=== PATIENT | male | born 1970 | race Caucasian/White ===

== ENCOUNTER 2020-04-11 04:08 | Inpatient (IN) | payer OTHER ==
[~2020-04-11] VITALS: Ht 185.4 cm; Wt 98.4 kg
--- NOTE | ~2020-04-11 | OP ---
[address] [address] OPERATIVE REPORT Name: FRANCESCO KIMBLE Room: [address] IN M.R.#: [id number] Admission: 04/11/20 Attend Phys: Pablito Quick MD Discharge: Date of : 74 Report #: [id number] THIS REPORT FOR: cc: Roly Vidales MD, Jason MD ~ Patric Capellan DO DICTATED BY: Willie Mcdaniel DO DATE OF SERVICE: 04/12/2020 PREOPERATIVE DIAGNOSIS: Acute cholecystitis. POSTOPERATIVE DIAGNOSIS: Acute cholecystitis. SURGEON: Patric Capellan DO. COMPUTER SYSTEMS SECURITY ADMINISTRATOR: Willie Mcdaniel DO, PGY5. OPERATION PERFORMED: Laparoscopic cholecystectomy with fluorescent imaging. ANESTHESIA: General and transversus abdominis plane block. ESTIMATED BLOOD LOSS: 20 mL. SPECIMEN: Gallbladder. COMPLICATIONS: None. INDICATIONS: The patient is a 49-year-old male who presented with right-sided upper quadrant abdominal pain. He was found on ultrasound to have acute cholecystitis. He was informed of the risks and benefits of laparoscopic cholecystectomy with risks including but not limited to bleeding, infection, bile duct injury, bowel injury, hernia formation, need for open procedure, need for reoperation and chronic diarrhea. He voiced understanding of these risks and decided to proceed with surgery. DESCRIPTION OF PROCEDURE: After informed consent was obtained, the patient was brought to the operating room and placed in supine position. SCDs were on and running. Preoperative antibiotics were given. General anesthesia was administered with an ET tube. Bilateral transversus abdominis plane blocks were provided by Anesthesia. The patient was prepped and draped in the usual sterile fashion. A surgical pause was held to confirm proper patient and procedure. A supraumbilical vertical 2 cm incision was made with an 11 blade. Dissection was carried down to the fascia. Fascia was incised using cautery. Peritoneum was bluntly entered using a Lamar, 0 Vic[address] was used to place [place] [address] OPERATIVE REPORT Name: FRANCESCO KIMBLE Room: [address] IN [facility].#: [id number] Admission: 04/11/20 Attend Phys: Pablito Quick MD Discharge: Date of : 74 Report #: [id number] peritoneum was insufflated with a Leander trocar. The abdomen was insufflated. The Leander trocar was secured. The patient was positioned head up and right side up. The camera was introduced. The gallbladder was immediately apparent. It was acutely inflamed and had a thick wall that was quite edematous. Three additional 5 mm port placed under direct visualization, 1 in the epigastrium and 2 under the right costal margin and right upper quadrant. The gallbladder was elevated. There were omental adhesions over the entire inferior and anterior surface of the gallbladder, which were taken down using cautery. The fundus of the gallbladder was elevated over the liver. Duc's pouch was grasped. Combination of blunt dissection and cautery were used to develop the hepatocystic triangle. Fluorescence imaging was used to guide dissection and assisted with identification of the cystic duct. A critical view of safety was obtained with 2 and only 2 structures entering the gallbladder. The fibrofatty tissue in the hepatocystic triangle was quite hard with evidence of acute on chronic inflammation. The cystic artery was singly clipped with Weck Hem-o-jay clips and divided using clyde. This provided further room for dissection of the cystic duct to clear the duct of the fibrous tissue to allow for adequate placement of clips. Once the duct was dissected down to an adequate size to accommodate clips, 2 Weck Hem-o-jay clips were fired proximal, one distal, cystic duct was divided using laparoscopic clyde. There was some sludge-like material that expressed from the duct during division of the duct. This was suctioned out with the suction charge gang weigher. The liver was then dissected free from the liver bed using cautery. It was placed within an EndoCatch bag and placed aside. The liver bed was inspected. Cautery was used for hemostasis. Right upper quadrant was thoroughly irrigated and suctioned. It was hemostatic. The clips were hemostatic. There was no bile leak. The patient was positioned supine. The right upper quadrant was again thoroughly irrigated and suctioned. Abdomen was desufflated. All ports were removed under direct visualization. The gallbladder was removed through the umbilical incision. It did require extension of the fascial incision using heavy curved Mayos. The fascia was closed with several [id number] using 0 Vicryl. Wound was closed in layered fashion using 3-0 Vicryl, 4-0 Monocryl. Remainder of skin was closed using 4-0 Monocryl. Wounds were cleansed and dressed with Dermabond. The patient was emerged from anesthesia and transferred to PACU in stable condition. All counts were correct. By: [id number] Karime Capellan DO /marilyn
[2020-04-11] MEDS ORDERED: TOPROL XL100 MG PO (04:28)
[2020-04-11] MEDS ORDERED: XANAX 0.5 MG0.5 M1 PO (04:28)
[2020-04-11 04:40] LABS: ABSOLUTE MONOCYTES 0.4 thou/uL (0.0-1.2); BASOPHILS 0.4 %; EOSINOPHILS 0.4 %; HEMATOCRIT 47.4 % (42.0-52.0); HEMOGLOBIN 16.5 gm/dL (14.0-18.0); LYMPHOCYTES 12.2 %; MCH 32.3 pg (26.0-34.0); MCHC 34.7 g/dL (28.0-37.0); MPV 8.6 fl. (7.2-11.1); NUCLEATED RBCS 0 /100WBC; PLATELET COUNT* 190 thou/uL (150-400); RDW-CV 12.3 % (10.5-14.5); WBC 8.5 thou/uL (4.0-11.0)
[2020-04-11 04:51] LABS: ALBUMIN 4.1 g/dL (3.4-5.0); CALCIUM 9.2 mg/dL (8.5-10.1); POTASSIUM 3.5 mmol/L (3.5-5.1); TOTAL BILIRUBIN 0.5 mg/dL (<0.1-1.0)
[2020-04-11 10:42] VITALS: BP 128/82
[2020-04-11 10:58] VITALS: BP 124/83
[2020-04-11 16:40] VITALS: BP 128/82
--- NOTE | 2020-04-11 17:29 | EKG ---
[place] [address] ELECTROCARDIOGRAM REPORT Name: FRANCESCO KIMBLE Room: [address] ADM IN M.R.#: [id number] Admission: 04/11/20 Attend Phys: Pablito Quick, Discharge: Date of : 74 Date of Service: 04/11/20 0425 Report #: [id number] THIS REPORT FOR: //name// [facility] ED Test Date: 2020-04-11 Test Time: 04:25:22 Pat Name: FRANCESCO KIMBLE Department: Room: [facility] Gender: M [employer] Dean: : 1970 Requested By: Cindy Garcia Order Number: [id number] MD: Darryl Del Valle Measurements Intervals [place] Rate: 68 P: 31 CT: 170 QRS: 86 QRSD: 102 T: 8 QT: 381 QTc: 406 Interpretive Statements Sinus rhythm ST elev, probable normal early repol pattern No previous ECG available for comparison Electronically Signed On 04-11-2020 17:28:58 [employer] by Darryl Del Valle [email or web address] <ELECTRONICALLY SIGNED> By: Darryl Del Valle MD, [facility] 04/11/20 1728 0425 0425 Darryl Del Valle MD, [facility] /EPI
[2020-04-12 05:14] LABS: ABSOLUTE EOSINOPHILS 0.1 thou/uL (0.0-0.7); ABSOLUTE MONOCYTES 0.4 thou/uL (0.0-1.2); ABSOLUTE NEUTROPHILS 3.8 thou/uL (1.6-8.1); BASOPHILS 0.5 %; EOSINOPHILS 1.3 %; HEMATOCRIT 43.5 % (42.0-52.0); HEMOGLOBIN 14.7 gm/dL (14.0-18.0); LYMPHOCYTES 18.4 %; MCH 31.8 pg (26.0-34.0); MCHC 33.8 g/dL (28.0-37.0); MCV 94.1 fL (80.0-100.0); MONOCYTES 8.4 %; MPV 9.2 fl. (7.2-11.1); NUCLEATED RBCS 0 /100WBC; PLATELET COUNT* 158 thou/uL (150-400); POLYS 71.4 %; RBC 4.62 mil/uL (4.50-6.00); RDW-CV 12.6 % (10.5-14.5); WBC 5.3 thou/uL (4.0-11.0)
[2020-04-12 05:24] LABS: CALCIUM 7.9 mg/dL (8.5-10.1); CREATININE 0.8 mg/dL (0.6-1.3); POTASSIUM 3.7 mmol/L (3.5-5.1)
[2020-04-12 05:28] LABS: ALBUMIN 3.2 g/dL (3.4-5.0); TOTAL BILIRUBIN 2.5 mg/dL (<0.1-1.0); TOTAL PROTEIN 6.6 g/dL (6.4-8.2)
[2020-04-12 05:49] VITALS: BP 123/79
[2020-04-12 11:18] VITALS: BP 141/91
[2020-04-12 13:58] VITALS: BP 141/91
[2020-04-12] MEDS ORDERED: ZOFRAN ODT4 MG PO (14:41)
[2020-04-12] MEDS ORDERED: OXYCODONE HCL 55 MG PO (14:41)
== END 2020-04-12 15:52 | disposition home or self-care (01) | DRG 419 ==
LOC: M.ERS 04:08 → M.TBA-ER 09:13 → M.3W 11:00
PROVIDERS: Emergency Medicine; Surgery; ADMIT Internal Medicine; ATTEND Internal Medicine
PROC: 0FT44ZZ Resection of Gallbladder, Percutaneous Endoscopic Approach (ICD-10-PCS; principal; 2020-04-12)
DX: K81.0 Acute cholecystitis (principal); I10 Essential (primary) hypertension; F41.9 Anxiety disorder, unspecified; Z20.828 Contact with and (suspected) exposure to other viral communicable diseases; Z79.899 Other long term (current) drug therapy

== ENCOUNTER → 2020-08-23 | Outpatient (CLI) | payer OTHER ==
[~2020-08-23] MED LIST: OXYCODONE HCL 55 MG PO; TOPROL XL100 MG PO; XANAX 0.5 MG0.5 M1 PO; ZOFRAN ODT4 MG PO
[2020-08-23 06:47] LABS: CHOLESTEROL 201 mg/dL (<200); HDL CHOLESTEROL 44 mg/dL (>40); LDL CHOLESTEROL 122 mg/dL (<100); SERUM ASSESSMENT Clear; TC:HDL 4.6 Ratio (Not establshd); TRIGLYCERIDE 177 mg/dL (<150); VLDL 35 mg/dL (<40)
== END ==
LOC: M.LAB 06:19
PROVIDERS: ATTEND Family Medicine
DX: E78.5 Hyperlipidemia, unspecified (principal)